=== PATIENT | female | born 1950 | race Caucasian/White ===

== ENCOUNTER 2019-03-23 08:00 | Inpatient (IN) | payer BC, OTHER ==
[2019-03-24 14:41] VITALS: BMI 39.3
[2019-04-09] MEDS ORDERED: CELECOXIB 200 MG CAPSULE PO ONE (06:29)
[2019-04-09] MEDS ORDERED: oxyCODONE HCL 10 MG SUSTAINED ACTING TABLET PO ONE (06:29)
[2019-04-09] MEDS ORDERED: TRANEXAMIC ACID 1000 MG/10 ML VIAL IVPUSH ONE (06:29)
[2019-04-09] MEDS ORDERED: CEFAZOLIN 2 GM in DEXTROSE 5%-WATER - 50 ML IVPB ONE (06:29)
[2019-04-09] MEDS ORDERED: PANTOPRAZOLE 40 MG TABLET (FP) PO ONE (06:30)
[2019-04-09] MEDS ORDERED: MIDAZOLAM HCL 2 MG/2 ML SINGLE DOSE VIAL ONE ×3 (06:33→10:27)
[2019-04-09] MEDS ORDERED: BUPIVACAINE HCL/PF 0.5% (5 MG/ML) 30 ML VIAL IJ ONE (06:33)
[2019-04-09] MEDS ORDERED: BUPIVACAINE LIPOSOME/PF (EXPAREL) 266 MG/20 ML VIAL ONE (06:33)
[2019-04-09] MEDS ORDERED: SODIUM CHLORIDE 0.9% P/F 10 ML VIAL IJ ONE (06:33)
--- NOTE | 2019-04-09 07:37 | HP ---
Admitting History and Physical - Admission Chief Complaint: right knee osteoarthritis x years History of Present Illness: 68 year old female presents in regard to their right knee. Long-standing history of right knee osteoarthritis. Patient complains of pain, limited range of motion, difficulty ambulating, and difficulty with activities of daily living. Patient has failed conservative treatment options including PO medications, activity modification, injections, and exercise programs. At this point, patient like to proceed with surgical intervention, right total knee arthroplasty MAKOplasty. History Source: Patient - Past Medical History Cardiovascular: Yes: Hyperlipdemia ...: No Psych: Yes: Depression Musculoskeletal: Yes: Osteoarthritis Endocrine: Yes: Diabetes Mellitus - Past Surgical History Additional Past Surgical History: See written history & physical. - Smoking History Smoking history: Former smoker Have you smoked in the past 12 months: No If you are a former smoker, when did you quit?: many years ago - Alcohol/Substance Use Hx Alcohol Use: No Home Medications - Allergies Allergies/Adverse Reactions: Allergies Allergy/AdvReac Type Severity Reaction Status Date / Time No Known Allergies Allergy Verified 04/09/19 07:14 - Home Medications Home Medications: Ambulatory Orders Atorvastatin Calcium [Lipitor] 10 mg PO DAILY 03/24/19 Escitalopram Oxalate [Lexapro] 10 mg PO DAILY 03/24/19 Meloxicam 15 mg PO DAILY PRN 03/24/19 Metformin HCl [Glucophage] 1,000 mg PO BID 03/24/19 Turmeric/Turmeric Root Extract [Turmeric 500 mg Capsule] 1 each PO DAILY Vitamin E Mixed [Vitamin E] 400 unit PO DAILY 03/24/19 Review of Systems - Review of Systems Musculoskeletal: reports: Crepitus (right knee), Decreased ROM (right knee), Joint Pain (right knee), Joint Swelling (right knee) Physical Examination Vital Signs: Vital Signs Temperature 98.6 F 04/09/19 07:15 Pulse Rate 96 H 04/09/19 07:15 Respiratory Rate 16 04/09/19 07:15 Blood Pressure 135/87 04/09/19 07:15 O2 Sat by Pulse Oximetry (%) Constitutional: Yes: Well Nourished, No Distress Eyes: Yes: Conjunctiva Clear HENT: Yes: Atraumatic Neck: Yes: Supple Cardiovascular: Yes: Regular Rate and Rhythm Respiratory: Yes: Regular Gastrointestinal: Yes: Soft ...Rectal Exam: Yes: Deferred Musculoskeletal: Yes: Joint Stiffness (right knee), Joint Swelling (right lnee) Assessment/Plan 68 year old female presents in regard to their right knee. Long-standing history of right knee osteoarthritis. Patient complains of pain, limited range of motion, difficulty ambulating, and difficulty with activities of daily living. Patient has failed conservative treatment options including PO medications, activity modification, injections, and exercise programs. At this point, patient like to proceed with surgical intervention, right total knee arthroplasty MAKOplasty. Pros, cons, risks, benefits, and alternatives of a right total knee arthroplasty MAKOplasty were discussed with the patient at length. Patient confirms their understanding and consents to proceed with a right total knee arthroplasty MAKOplasty.
[2019-04-09] MEDS ORDERED: ceFAZolin SODIUM 1 GM VIAL ONE ×3 (07:38→08:48)
[2019-04-09] MEDS ORDERED: VANCOMYCIN 1,000 MG VIAL (RESTRICTED TO ID ONLY) ONE (08:15)
[2019-04-09] MEDS ORDERED: BUPIVACAINE HCL/PF 0.5% (5MG/ML) 10 ML VIAL ONE (08:20)
[2019-04-09] MEDS ORDERED: PROPOFOL 20 ML ONE ×5 (08:51→11:28)
[2019-04-09] MEDS ORDERED: TRANEXAMIC ACID 1000 MG/10 ML VIAL ONE ×2 (09:12→11:18)
[2019-04-09] MEDS ORDERED: ONDANSETRON 4 MG/2 ML VIAL IVPUSH PRN ×2 (11:06→12:48)
[2019-04-09] MEDS ORDERED: oxyCODONE HCL 5 MG TABLET PO PRN (11:07)
[2019-04-09] MEDS ORDERED: VANCOMYCIN 1,000 MG VIAL (RESTRICTED TO ID ONLY) IVPB ONE ×2 (11:35)
[2019-04-09] MEDS ORDERED: TRANEXAMIC ACID 1000 MG/10 ML VIAL IVPB ONE ×2 (11:45)
--- NOTE | 2019-04-09 12:46 | OP ---
Operative Note - Note: Operative Date: 04/09/19 Pre-Operative Diagnosis: RIGHT KNEE OA Operation: RIGHT GEOVANNA TKA Post-Operative Diagnosis: Same as Pre-op Surgeon: Delroy Hernandez Telemarketing Manager: Maria C Meek Anesthesia: Spinal Estimated Blood Loss (mls): 300
[2019-04-09] MEDS ORDERED: ACETAMINOPHEN 1000 MG/100 ML VIAL (NON FORMULARY) IVPB ONE (12:47)
[2019-04-09] MEDS ORDERED: MAG HYDROX/AL HYDROX/SIMETH 30 ML UNIT-DOSE CUP PO PRN (12:48)
[2019-04-09] MEDS ORDERED: MAGNESIUM HYDROX 2400MG/30ML ORAL SUSPENSION 30 ML CUP PO PRN (12:48)
[2019-04-09] MEDS ORDERED: traMADol HCL 50 MG TABLET ONE (12:54)
[2019-04-09] MEDS ORDERED: KETOROLAC TROMETHAMINE 30 MG/1 ML VIAL ONE (12:54)
[2019-04-09] MEDS: KETOROLAC TROMETHAMINE 30 MG/1 ML VIAL IVPUSH SCH ×2 (13:00→20:20)
[2019-04-09] MEDS ORDERED: traMADol HCL 50 MG TABLET PO SCH (13:00)
[2019-04-09] MEDS ORDERED: LACTATED RINGERS SOLUTION 1,000 ML IV SCH (13:00)
[2019-04-09] MEDS ORDERED: KETOROLAC TROMETHAMINE 30 MG/1 ML VIAL IVPUSH SCH (13:00)
[2019-04-09] MEDS: traMADol HCL 50 MG TABLET PO SCH ×2 (13:10→20:19)
[2019-04-09] MEDS: LACTATED RINGERS SOLUTION 1,000 ML IV SCH (15:30)
[2019-04-09] MEDS: oxyCODONE HCL 5 MG TABLET PO PRN (16:12)
[2019-04-09] MEDS: metFORMIN HCL 500 MG TABLET (FP) PO SCH (16:13)
[2019-04-09] MEDS: CEFAZOLIN 2 GM/D5W 2 GM/50 ML ML IVPB SCH (17:18)
[2019-04-09] MEDS ORDERED: DEXAMETHASONE SOD PHOSPHATE 10 MG/1 ML VIAL IVPB ONE (20:00)
[2019-04-09] MEDS: ACETAMINOPHEN 325 MG TABLET (FP) PO SCH (20:18)
--- NOTE | 2019-04-09 21:15 | SPEC ---
DATE OF OPERATION: 04/09/2019 PREOPERATIVE DIAGNOSIS: Right knee osteoarthritis. POSTOPERATIVE DIAGNOSIS: Right knee osteoarthritis. PROCEDURE: Right total knee replacement with MAKOplasty robotic navigation. ATTENDING SURGEON: Delroy Hernandez MD MACHINE EDGE BANDER: SILVIA Mayo ANESTHESIA: Spinal plus sedation. ESTIMATED BLOOD LOSS: 300 mL. COMPLICATIONS: None. DISPOSITION: The patient was transferred to the PACU in stable condition. IMPLANTS USED: [employer] Triathlon size 3 femoral component, Eladia Triathlon size 2 tibial component with 50-mm tibial stem, 19-mm total stabilized polyethylene component, and 32-mm patellar component. INDICATIONS: This is a 68-year-old female who presented to the office complaining of severe right knee pain. She was seen and examined by Dr. Hernandez and diagnosed with severe right knee osteoarthritis. She had notable varus deformity as well as a 30-degree flexor contracture. The patient had a previous history of a left total knee replacement performed at another hospital and had a difficult recovery, therefore, waited until she had very severe pain before proceeding with surgical treatment of the right knee. The patient was initially conservatively with injections, medications, and physical therapy but continued to have severe pain and ambulatory dysfunction. She was, therefore, indicated for a right total knee replacement. The risks, benefits, and alternatives to this procedure were explained to the patient in great detail, and she elected to proceed with the surgery. DESCRIPTION OF PROCEDURE: On the day of surgery, the patient was taken to the operating room and placed on the OR table. Spinal anesthesia was administered by the anesthesiologist. The patient was then positioned supine on the table and all bony prominences were padded. The knee was then prepped and draped in the usual sterile fashion and intravenous antibiotics were given for infection prophylaxis. A surgical time-out was then performed with the team, and the patients identity, procedure, side, availability of implants, and the administration of antibiotics was confirmed. With the knee flexed, a midline incision was made and carried down through the subcutaneous fat to the underlying retinaculum. A medial parapatellar arthrotomy was performed. This was followed by a subperiosteal dissection of the tissue off the proximal, medial tibia. A portion of fat pad was removed from under the patellar tendon, and a small portion of fat was excised off the distal supracondylar femur. Electrocautery and an [employer] bipolar sealing device were used to achieve hemostasis. The knee was then flexed further and the anterior horn of the lateral meniscus was released from the midline. Next, the anterior and posterior cruciate ligaments were transected. Grade 4 changes were noted diffusely throughout the knee. Femoral and tibial checkpoints were then placed in the appropriate location using a mallet. Two parallel bicortical self-drilling pins were placed in the tibial diaphysis after making stab incisions and bluntly dissecting down to bone. Two pins were then placed in the distal supracondylar femur. The [employer] navigation arrays were then attached to both the femoral and tibial pins and the lower extremity was then registered to the robotic navigation device using various joint movements, as well as inputting several dozen reference points. The knee was then taken through a full range of motion with a corrective force applied. Alignment in varus/valgus as well as flexion/extension and soft tissue balance was measured in various positions. The navigation device showed a numerical and graphic representation of the soft tissue balance. The components were repositioned virtually using the software until optimal soft tissue balance was achieved on screen. Once this was accomplished, the final plan was saved and sent to the robot. Self-retaining retractors were then placed at the joint line for exposure and protection of the collateral ligaments. The robot was brought into the sterile field and registered with the navigation device. The robotic arm with attached oscillating saw blade was then used to perform femoral and tibial bone cuts as per the saved software plan. The femoral box cut was made using the appropriately sized manual cutting guide. The knee was then irrigated. Trial components were placed and the knee was taken through a full range of motion to assess soft tissue balance and alignment. The range of motion was found to be excellent and the soft tissue balance was optimal and according to plan. The knee was then put into extension and the patella everted. The synovium around the patella was circumscribed with electrocautery. A caliper was used to measure the patellar thickness and a saw was then used to resect the patella at the chondro-osseous junction. The cut surface was then sized and drilled for the appropriate patellar button, with care taken to medialize it. A trial patella was then placed and the knee was again taken through a full range of motion. The knee was found to have both good balance and good patellar tracking. All of the components were removed except the tibial base plate. The appropriate instrumentation was used to drill and punch the proximal tibia for the keel of the final component. All bony surfaces were then cleaned with pulsatile lavage and dried. Bone cement was then prepared on the back table, and final components were cemented in place in the usual fashion. Extruded cement was removed. The polyethylene trial was placed, the knee was put into extension, and axial pressure was applied for compression while the cement hardened. The patellar button was similarly cemented into place. Once the cement had hardened, the knee was taken through a full range of motion to assess stability, balance, and patellar tracking. This was found to be optimal and the trial polyethylene was exchanged for the appropriately sized real implant. The wound was then thoroughly irrigated with normal saline. A 3-minute dilute Betadine lavage was performed. The knee was again irrigated using a pulsatile lavage device. A periarticular injection was used to locally infiltrate the capsular tissues surrounding the implant and prosthesis. Then No. 1 Polysorb and 0 VLoc 180 barbed sutures were used to close the arthrotomy. Then No. 1 Polysorb and 2-0 VLoc 90 sutures were used in the subcutaneous tissues. Then 4-0 undyed Vicryl and Dermabond skin adhesive was used to close the stab incisions made for the navigation pins. The skin was closed using both 3-0 VLoc 90 suture in a running subcuticular fashion and Dermabond skin adhesive. Once this was completed a sterile Aquacel dressing and compressive Keagan-wrap was applied. The patient was then awakened and taken to the PACU in stable condition. Rola [id number]
[2019-04-09] MEDS: SENNOSIDES/DOCUSATE COMBO (SENNA PLUS) TABLET (UD) PO SCH (21:34)
[2019-04-09] MEDS: CELECOXIB 200 MG CAPSULE PO SCH (21:34)
[2019-04-09] MEDS: ASCORBIC ACID 500 MG TABLET (FP) PO SCH (21:35)
[2019-04-09] MEDS: oxyCODONE HCL 10 MG SUSTAINED ACTING TABLET PO SCH (21:35)
[2019-04-09] MEDS: GABAPENTIN 300 MG CAPSULE (FP) PO SCH (21:36)
[2019-04-09] MEDS ORDERED: PATIENT'S OWN MEDICATION (NON-FORMULARY) (Metformin Hcl [Glucophage] 1,000 MG) PO SCH (22:00)
[2019-04-10] MEDS: CEFAZOLIN 2 GM/D5W 2 GM/50 ML ML IVPB SCH (02:21)
[2019-04-10] MEDS: KETOROLAC TROMETHAMINE 30 MG/1 ML VIAL IVPUSH SCH ×2 (02:21→11:01)
[2019-04-10] MEDS: traMADol HCL 50 MG TABLET PO SCH ×4 (02:22→21:36)
[2019-04-10] MEDS: ACETAMINOPHEN 325 MG TABLET (FP) PO SCH ×4 (02:22→21:36)
[2019-04-10] MEDS: metFORMIN HCL 500 MG TABLET (FP) PO SCH ×2 (06:29→16:30)
[2019-04-10] MEDS: oxyCODONE HCL 5 MG TABLET PO PRN (06:29)
[2019-04-10 08:03] LABS: HEMATOCRIT 31.7 % (32.4-45.2); HEMOGLOBIN 10.8 GM/dl (10.7-15.3); MCH 32.4 pg (25.7-33.7); MCHC 34.2 g/dl (32.0-36.0); MEAN PLT VOLUME 9.3 fl (7.5-11.1); PLATELET COUNT 155 K/MM3 (134-434); RBC 3.33 M/mm3 (3.60-5.2); RDW 12.3 % (11.6-15.6); WHITE BLOOD COUNT 7.5 K/mm3 (4.0-10.8)
[2019-04-10 08:39] LABS: CALCIUM 8.6 mg/dl (8.5-10); CREATININE 0.8 mg/dl (0.55-1.3); POTASSIUM 3.8 mmol/L (3.5-5.1)
[2019-04-10] MEDS: ASPIRIN 325 MG TABLET PO SCH (10:55)
[2019-04-10] MEDS: MULTIVITAMINS (DAILY MVI) TABLET (FP) PO SCH (10:56)
[2019-04-10] MEDS: ESCITALOPRAM OXALATE 10 MG TABLET (FP) PO SCH (10:56)
[2019-04-10] MEDS: ASCORBIC ACID 500 MG TABLET (FP) PO SCH ×2 (10:56→21:37)
[2019-04-10] MEDS: GABAPENTIN 300 MG CAPSULE (FP) PO SCH ×2 (10:57→21:37)
[2019-04-10] MEDS: CELECOXIB 200 MG CAPSULE PO SCH ×2 (10:57→21:37)
[2019-04-10] MEDS: PANTOPRAZOLE 40 MG TABLET (FP) PO SCH (10:57)
[2019-04-10] MEDS: ATORVASTATIN CA 10 MG TABLET (FP) PO SCH (10:57)
[2019-04-10] MEDS: oxyCODONE HCL 10 MG SUSTAINED ACTING TABLET PO SCH ×2 (10:58→21:37)
[2019-04-10] MEDS: SENNOSIDES/DOCUSATE COMBO (SENNA PLUS) TABLET (UD) PO SCH ×2 (10:58→21:39)
[2019-04-10] MEDS: LACTATED RINGERS SOLUTION 1,000 ML IV SCH (13:01)
--- NOTE | 2019-04-10 21:25 | PN ---
Progress Note (short form) - Note Progress Note: Pt seen and examined. Doing well. AVSS Selected Entries 04/10/19 18:00 Temperature 97.8 F Pulse Rate 77 Respiratory 18 Rate Blood Pressure 100/50 L O2 Sat by Pulse 96 Oximetry (%) Oxygen Delivery Room Air Method Laboratory Tests 04/10/19 04/10/19 04/10/19 06:38 07:34 07:34 WBC 7.5 Hgb 10.8 Hct 31.7 L Plt Count 155 Sodium 136 Potassium 3.8 Chloride 105 Carbon Dioxide 22 Anion Gap 9 BUN 13.0 Creatinine 0.8 Est GFR (CKD-EPI)AfAm 87.80 POC Glucometer 190 Random Glucose 205 H Calcium 8.6 Gen: NAD RLE: c/d/i, NVID A/P POD#1 s/p R TKA PT/OOB D/C home in AM
--- NOTE | 2019-04-10 21:29 | DS ---
Physical Examination Vital Signs: Vital Signs Temperature 98.6 F 04/10/19 14:00 Pulse Rate 81 04/10/19 14:00 Respiratory Rate 20 04/10/19 14:00 Blood Pressure 99/54 L 04/10/19 14:00 O2 Sat by Pulse Oximetry (%) 95 04/10/19 09:00 Labs: CBC, BMP 04/10/19 07:34 04/10/19 07:34 Discharge Summary Problems reviewed: Yes Reason For Visit: RIGHT KNEE OSTEOARTHRITIS Current Active Problems Osteoarthritis of right knee (Acute) Procedures: Principal: right GEOVANNA TKA Hospital Course: Admitted for elective surgery. Procedure performed without complications. Pt received postoperative antibiotic prophylaxis and DVT ppx. Ambulated with physical therapy. Stable for discharge home with outpatient followup. Condition: Stable - Instructions Diet, Activity, Other Instructions: Dr. Hernandez - Knee Replacement Instructions Keep the Aquacel dressing on until removed by Dr. Hernandez in 10-14 days - it is antibacterial and waterproof and you can shower with it on. Call the office for a follow-up appointment with Dr. Hernandez in 10-14 days. Take one Aspirin 325mg daily for 6 weeks to prevent blood clots in your legs. Take one Pantoprazole 40mg daily for 6 weeks to protect against heartburn and ulcers. Take Cephalexin (antibiotic) 3x/day for 10 days to help prevent skin infection. Take Celebrex 200mg daily for 30 days to reduce swelling and inflammation. Take a multivitamin, stool softener, and extra Vitamin C supplement daily. For pain: *Mild pain (1-3/10): Take 1 Tramadol tablet every 4 hours as needed. Moderate pain (4-6/10): Take 1 Tramadol tablet and 1 Percocet tablet every 4 hours as needed. Severe pain (7-10/10): Take 1 Tramadol tablet and 2 Percocet tablets every 4 hours as needed. Activity: You can put as much weight on the operative leg as you want. Right after you get home, there will be a physical therapist coming to your house to help you walk around and bend/straighten your knee. After your follow-up appointment, you will be sent for more intensive outpatient physical therapy which will include machines and equipment that the home therapist cannot bring to your house. Always use a walker or cane for balance and to prevent falls. Expect to see swelling/bruising from the operative site all the way down to your toes. Wear the compression stocking on the operative side during the day to minimize how much swelling there is in your foot/ankle. Don't wear the stocking at night. You don't have to wear a stocking on the other side. Disposition: VNS/HOME HEALTH CARE - Home Medications Comprehensive Discharge Medication List: Ambulatory Orders Atorvastatin Calcium [Lipitor] 10 mg PO DAILY 03/24/19 Escitalopram Oxalate [Lexapro -] 10 mg PO DAILY 03/24/19 Metformin HCl [Glucophage] 1,000 mg PO BID 03/24/19 Turmeric/Turmeric Root Extract [Turmeric 500 mg Capsule] 1 each PO DAILY Vitamin E Mixed [Vitamin E] 400 unit PO DAILY 03/24/19 Ascorbic Acid [Vitamin C -] 500 mg PO BID tablet 04/10/19 Aspirin [ASA -] 325 mg PO DAILY@0800 tablet 04/10/19 Celecoxib [CeleBREX -] 200 mg PO DAILY #30 capsule 04/10/19 Cephalexin Monohydrate [Keflex -] 500 mg PO TID #30 capsule 04/10/19 Multivitamins [Multivit ([facility] Formulary)] 1 tab PO DAILY tab 04/10/19 Oxycodone HCl/Acetaminophen [Percocet 5-325 mg Tablet] 1 - 2 tab PO Q4H PRN #60 tablet MDD 10 04/10/19 Pantoprazole Sodium [Protonix -] 40 mg PO DAILY #40 tablet.ec 04/10/19 Sennosides/Docusate Sodium [Pericolace -] 2 tablet PO BID tablet 04/10/19 traMADol HCL [Ultram -] 50 mg PO Q4H PRN #42 tablet MDD 6 04/10/19
[2019-04-11] MEDS: traMADol HCL 50 MG TABLET PO SCH ×2 (03:13→07:11)
[2019-04-11] MEDS: ACETAMINOPHEN 325 MG TABLET (FP) PO SCH ×2 (03:13→07:11)
[2019-04-11] MEDS: metFORMIN HCL 500 MG TABLET (FP) PO SCH (07:09)
[2019-04-11] MEDS: ASPIRIN 325 MG TABLET PO SCH (07:11)
[2019-04-11 08:31] LABS: HEMOGLOBIN 10.6 GM/dl (10.7-15.3)
[2019-04-11 08:36] LABS: WHITE BLOOD COUNT 8.7 K/mm3 (4.0-10.8)
[2019-04-11 08:41] LABS: HEMATOCRIT 31.2 % (32.4-45.2); MCH 32.3 pg (25.7-33.7); MEAN PLT VOLUME 9.1 fl (7.5-11.1); PLATELET COUNT 173 K/MM3 (134-434); RBC 3.28 M/mm3 (3.60-5.2); RDW 12.4 % (11.6-15.6)
[2019-04-11] MEDS: CELECOXIB 200 MG CAPSULE PO SCH (10:45)
[2019-04-11] MEDS: GABAPENTIN 300 MG CAPSULE (FP) PO SCH (10:46)
[2019-04-11] MEDS: ESCITALOPRAM OXALATE 10 MG TABLET (FP) PO SCH (10:46)
[2019-04-11] MEDS: ATORVASTATIN CA 10 MG TABLET (FP) PO SCH (10:46)
[2019-04-11] MEDS: oxyCODONE HCL 10 MG SUSTAINED ACTING TABLET PO SCH (10:47)
[2019-04-11] MEDS: MULTIVITAMINS (DAILY MVI) TABLET (FP) PO SCH (10:47)
[2019-04-11] MEDS: SENNOSIDES/DOCUSATE COMBO (SENNA PLUS) TABLET (UD) PO SCH (10:47)
[2019-04-11] MEDS: ASCORBIC ACID 500 MG TABLET (FP) PO SCH (10:47)
[2019-04-11] MEDS: PANTOPRAZOLE 40 MG TABLET (FP) PO SCH (10:47)
[2019-04-11 11:57] VITALS: BP 112/58; PULSE 82; TEMP 98
--- NOTE | 2019-04-14 14:32 | PATH ---
Surgical Pathology Report Patient Name: ALESSANDRO LESTER Med. Rec. #: [id number] /Age/Gender: 1950 (Age: 68) / F Account: [id number] Location: [facility] MED-SURG Taken: 04/09/2019 Received: 04/09/2019 Reported: 04/14/2019 Physicians: Delroy Hernandez M.D. Specimen(s) Received RIGHT KNEE BONES Clinical History Right knee osteoarthritis Final Diagnosis KNEE BONES, RIGHT, TOTAL KNEE REPLACEMENT: DEGENERATIVE JOINT DISEASE. Electronically Signed Renetta Castro M.D. Gross Description Received in formalin labeled "right knee bones," is a 13.0 x 10.0 x 2.0 cm aggregate of multiple portions of bone and soft tissue, consistent with knee bones. There are multiple areas of eburnation present, measuring up to 2.5 cm in greatest dimension. The remaining articular surfaces are adam-brown and diffusely granular. The underlying trabecular bone is yellow and hard. Fabrication Mig Welder sections are submitted in one cassette, following decalcification. 04/10/[address] [facility]04/10/2019
== END 2019-04-11 11:30 | disposition home health service (06) | DRG 470 ==
LOC: FM/S 04-09 06:01
PROVIDERS: ADMIT Student in an Organized Health Care Education/Training Program; ATTEND Student in an Organized Health Care Education/Training Program
PROC: 8E0Y0CZ Robotic Assisted Procedure of Lower Extremity, Open Approach (ICD-10-PCS; 2019-04-09)
PROC: 0SRC0J9 Replacement of Right Knee Joint with Synthetic Substitute, Cemented, Open Approach (ICD-10-PCS; principal; 2019-04-09 08:00)
DX: M17.11 Unilateral primary osteoarthritis, right knee (principal); Z87.891 Personal history of nicotine dependence; E11.9 Type 2 diabetes mellitus without complications; E78.5 Hyperlipidemia, unspecified; Z79.84 Long term (current) use of oral hypoglycemic drugs
CPT/HCPCS: 36415; 73560-TC-RT-FY; 80048; 82962; 85027; 88304-TC; 88311-TC; 94760; 97116-GP; 97163-GP; J0131; J1100

== ENCOUNTER 2019-04-20 16:33 | Emergency (ER) | payer BC, OTHER ==
[2019-04-20 16:49] VITALS: BP 135/73; PULSE 80; TEMP 98.5; BMI 38.3
--- NOTE | 2019-04-20 17:16 | PDOC ---
Documentation entered by Tammy Jones SCRIBE, acting as scribe for Jordan Jorge MD. Jordan Jorge MD: This documentation has been prepared by the Karen kelley Xhesika, SCRIBE, under my direction and personally reviewed by me in its entirety. I confirm that the documentation accurately reflects all work, treatment, procedures, and medical decision making performed by me. History of Present Illness - General Chief Complaint: Pain, Acute Stated Complaint: RIGHT LEG PAIN AND SWELLING Time Seen by Provider: 04/20/19 16:40 History Source: Patient Exam Limitations: No Limitations - History of Present Illness Initial Comments: 04/20/19 16:50 The patient is a 68 year old female with a significant PMH of HLD, DM, depression,osteoarthritis, and recent Knee replacement (04/09/19) who presents to the emergency department for R leg pain and swelling. The patient reports she had a knee replacement on 04/09/[address] Hernandez. Pt reports her physical therapist was over the house today and noticed the swelling and redness, called Dr. Hernandez and was advised to come to the ER to r/o DVT. Pt notes her R leg swelling was worse yesterday and better today, however, pt reports increased swelling at R ankle yesterday. Pt notes she has been exercising her R leg on her own and with a therapist. Pt notes her pain has been the same since her operation. pt notes she is able to ambulate with a walker. The patient denies chest pain, shortness of breath, headache and dizziness. Denies fever, chills, cough, nausea, vomiting, diarrhea and constipation. Allergies: NKDA Past History - Past Medical History Allergies/Adverse Reactions: Allergies Allergy/AdvReac Type Severity Reaction Status Date / Time No Known Allergies Allergy Verified 04/20/19 16:51 Home Medications: Ambulatory Orders Atorvastatin Calcium [Lipitor] 10 mg PO DAILY 03/24/19 Escitalopram Oxalate [Lexapro -] 10 mg PO DAILY 03/24/19 Metformin HCl [Glucophage] 1,000 mg PO BID 03/24/19 Turmeric/Turmeric Root Extract [Turmeric 500 mg Capsule] 1 each PO DAILY Vitamin E Mixed [Vitamin E] 400 unit PO DAILY 03/24/19 Ascorbic Acid [Vitamin C -] 500 mg PO BID tablet 04/10/19 Aspirin [ASA -] 325 mg PO DAILY@0800 tablet 04/10/19 Celecoxib [CeleBREX -] 200 mg PO DAILY #30 capsule 04/10/19 Cephalexin Monohydrate [Keflex -] 500 mg PO TID #30 capsule 04/10/19 Multivitamins [Multivit ([facility] Formulary)] 1 tab PO DAILY tab 04/10/19 Oxycodone HCl/Acetaminophen [Percocet 5-325 mg Tablet] 1 - 2 tab PO Q4H PRN #60 tablet MDD 10 04/10/19 Pantoprazole Sodium [Protonix -] 40 mg PO DAILY #40 tablet.ec 04/10/19 Sennosides/Docusate Sodium [Pericolace -] 2 tablet PO BID tablet 04/10/19 traMADol HCL [Ultram -] 50 mg PO Q4H PRN #42 tablet MDD 6 04/10/19 Anemia: No Asthma: No Cancer: No Cardiac Disorders: No CVA: No COPD: No CHF: No Dementia: No Diabetes: Yes GI Disorders: No Disorders: No HTN: No Hypercholesterolemia: Yes Liver Disease: No Seizures: No Thyroid Disease: No - Surgical History Abdominal Surgery: Yes Appendectomy: No Cardiac Surgery: No Cholecystectomy: Yes Lung Surgery: No Neurologic Surgery: No Orthopedic Surgery: Yes (LTKR) - Psycho Social/Smoking Cessation Hx Smoking History: Former smoker Have you smoked in the past 12 months: No If you are a former smoker, when did you quit?: many years ago Information on smoking cessation initiated: No Hx Alcohol Use: No Drug/Substance Use Hx: No Substance Use Type: None Review of Systems - Review of Systems Able to Perform ROS?: Yes Comments:: 04/20/19 16:52 GENERAL/CONSTITUTIONAL: No fever or chills. No weakness. HEAD, EYES, EARS, NOSE AND THROAT: No change in vision. No ear pain or discharge. No sore throat. CARDIOVASCULAR: No chest pain or shortness of breath. RESPIRATORY: No cough, wheezing, or hemoptysis. GASTROINTESTINAL: No nausea, vomiting, diarrhea or constipation. GENITOURINARY: No dysuria, frequency, or change in urination. MUSCULOSKELETAL: + R leg pain, swelling and redness. No neck or back pain. SKIN: No rash NEUROLOGIC: No headache, vertigo, loss of consciousness, or change in strength/ sensation. ENDOCRINE: No increased thirst. No abnormal weight change. HEMATOLOGIC/LYMPHATIC: No anemia, easy bleeding, or history of blood clots. ALLERGIC/IMMUNOLOGIC: No hives or skin allergy. *Physical Exam - Vital Signs Last Vital Signs Temp Pulse Resp BP Pulse Ox 98.5 F 80 19 135/73 100 04/20/19 16:34 04/20/19 16:34 04/20/19 16:34 04/20/19 16:34 04/20/19 16:34 - Physical Exam 04/20/19 17:07 GENERAL: The patient is awake, alert, and fully oriented, in no acute distress. LUNGS: Breath sounds equal, clear to auscultation bilaterally. No wheeze/ crackles. HEART: Regular rate and rhythm, normal S1 and S2 without murmur or rub. ABDOMEN: Soft/nontender/nondistended. BS wnl. No guarding or rebound. No palpable masses. No hepatosplenomegaly. EXTREMITIES:+ R leg incision clean, dry, intact. No purulence or drainage at the incision site. +R leg swelling at mid thigh to ankle.Full ROM at ankle. Slightly limited ROM at knee post op. No clubbing or cyanosis. No cords, erythema, or tenderness. PSYCH: Normal mood, normal affect. SKIN: Warm, Dry, normal turgor, no rashes or lesions noted. ED Treatment Course - RADIOLOGY Radiology Studies Ordered: Category Date Time Status DUPLEX VASCUL US-1 LEG [US] Stat Ultrasound 04/20/19 16:39 Ordered Medical Decision Making - Medical Decision Making 04/20/19 17:14 68-year-old female status post right knee replacement on 04/[address] Hernandez presents now sent by physical therapist for increased right leg swelling. Patient has no specific complaints, feels the swelling and discomfort are gradually improving since the surgery, denies any fevers or chills or redness or bleeding or discharge from the wound. No motor or sensory deficit. Afebrile, vitals as noted Exam as noted with circumferential swelling to the thigh on the right lower extremity, no focal tenderness or warmth, incisions are clean/dry/intact, motor/ sensation is intact distally, 2+ distal pulses. 68-year-old female with swelling of right lower extremity following right knee replacement 9 days ago. Presentation not consistent with infection/cellulitis, sent to rule out DVT. Right lower extremity Doppler Disposition with Dr. Hernandez's covering physician 04/20/19 18:36 no DVT of common femoral or upper/middle thirds of femoral veins, but lower third of femoral vein and popliteal vein not visualized. Recommend CT venography for further evaluation, will d/w. Lou Loyd as CT venogram not available at this site. Consider outpt MRV versus f/u doppler in AM. 04/20/19 19:13 d/w Dr. Hernandez, pt's orthopedic. pt to f/u in office on for repeat doppler, can d/c now given nvi. pt agrees, will f/u. understands return criteria. Discharge - Discharge Information Problems reviewed: Yes Clinical Impression/Diagnosis: Right leg swelling, Status post right knee replacement Condition: Stable Disposition: HOME - Admission No - Follow up/Referral Referrals: Delroy Hernandez MD [Staff Physician] - - Patient Discharge Instructions Patient Printed Discharge Instructions: DI for Dependent Edema, DI for Peripheral Edema, Unilateral Additional Instructions: Activity as tolerated. Stay hydrated. Tylenol 1000 mg every 8 hours and/or ibuprofen 600 mg every 8 hours as needed for pain. Ice and elevate the affected areas for 20 minutes every 3-4 hours to reduce swelling. An ultrasound today was incomplete but showed no evidence of DVT in the veins that were visualized. Continue your medications as previously prescribed by your physician. You should follow up with DR. HERNANDEZ ON SATURDAY FOR REPEAT ULTRASOUND regarding today's emergency department visit. Return to the emergency department for any new or concerning symptoms, particularly worsening swelling, fevers or chills, pain or discoloration, bleeding or pus. - Post Discharge Activity
== END 2019-04-20 19:29 | disposition home or self-care (01) ==
LOC: FER 16:33
DX: M79.89 Other specified soft tissue disorders (principal); R60.0 Localized edema; Z96.651 Presence of right artificial knee joint; E11.9 Type 2 diabetes mellitus without complications; E78.5 Hyperlipidemia, unspecified; F32.9 Major depressive disorder, single episode, unspecified; M19.90 Unspecified osteoarthritis, unspecified site; Z79.82 Long term (current) use of aspirin; Z79.84 Long term (current) use of oral hypoglycemic drugs; Z87.891 Personal history of nicotine dependence
CPT/HCPCS: 93971-TC; 99281-25

== ENCOUNTER 2022-03-16 06:13 | Day surgery (SDC) | payer BC ==
[2022-03-12 16:43] VITALS: BMI 39.6
[2022-03-16] MEDS ORDERED: MIDAZOLAM HCL 2 MG/2 ML SINGLE DOSE VIAL ONE (07:13)
[2022-03-16] MEDS ORDERED: DEXAMETHASONE SOD PHOSPHATE 4 MG/1 ML VIAL ONE (07:13)
[2022-03-16] MEDS ORDERED: PROPOFOL 40 ML ONE (07:13)
[2022-03-16] MEDS ORDERED: ONDANSETRON 4 MG/2 ML VIAL ONE (07:13)
[2022-03-16] MEDS ORDERED: LIDOCAINE HCL/PF 2% SDV 5ML VIAL ONE (07:13)
[2022-03-16] MEDS ORDERED: LIDOCAINE HCL 2% (20ML MULTI-DOSE VIAL) ONE (07:15)
[2022-03-16] MEDS ORDERED: BUPIVACAINE HCL/PF 2.5 MG/ML - 30 ML VIAL IJ ONE (07:15)
[2022-03-16] MEDS ORDERED: LIDOCAINE HCL 1%, 10 MG/ML (20ML VIAL) ONE (07:39)
[2022-03-16] MEDS ORDERED: ONDANSETRON 4 MG/2 ML VIAL IVPUSH PRN (08:56)
[2022-03-16] MEDS ORDERED: LACTATED RINGERS SOLUTION 1,000 ML IV SCH (09:00)
[2022-03-16 10:20] VITALS: RESP 19
[2022-03-16 10:25] VITALS: BP 126/70; PULSE 77; TEMP 96
== END 2022-03-16 10:15 | disposition home or self-care (01) ==
LOC: FASU 06:13
PROVIDERS: ATTEND Orthopaedic Surgery
PROC: 0LN70ZZ Release Right Hand Tendon, Open Approach (ICD-10-PCS; principal; 2022-03-16 08:07)
DX: M65.331 Trigger finger, right middle finger (principal); M65.9 Synovitis and tenosynovitis, unspecified
CPT/HCPCS: 82962; 94760